=== PATIENT | male | born 1955 | race American Indian/Alaskan Native ===

== ENCOUNTER 2017-03-21 06:19 | Emergency (ER) | payer BC ==
[2017-03-21 06:30] VITALS: BMI 32.1
--- NOTE | 2017-03-21 07:34 | ED PDOC ---
Arrival/HPI <Belkis John Y - Last Filed: 03/21/17 12:18> - General Historian: Patient - History of Present Illness Time/Duration: Prior to Arrival Symptom Onset: Sudden Symptom Course: Improving Quality: Other (SOB) Severity Level: 1 Activities at Onset: Light Context: Work <Carol Martinez - Last Filed: 03/21/17 14:11> - General Chief Complaint: Shortness Of Breath Time Seen by Provider: 03/21/17 07:18 - History of Present Illness Narrative History of Present Illness (Text): 03/21/17 07:31 This is a 61Y M with PMH HTN, vertigo, cerebellar infarct and thrombocytopenia here for diaphoresis a few hours ago. 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 This has not happened to him before. His coworker was with him at the time and called an ambulance. His coworker did not see any LOC or tonic clonic movements. He denies CP, dizziness, n/v/d, numbness/tingling, vision changes, fever or chills. When in the ambulance he said his SBP was 230. He only took an Amlodipine this morning and usually takes a Lisinopril in the afternoon. (Carol Martinez) Past Medical History - Provider Review Nursing Documentation Reviewed: Yes - Cardiac Hx Hypertension: Yes - Pulmonary Hx Respiratory Disorders: No - Neurological Hx Neurological Disorder: No - HEENT Hx HEENT Disorder: No - Renal Hx Renal Disorder: No - Endocrine/Metabolic Hx Endocrine Disorders: No - Hematological/Oncological Hx Blood Disorders: No - Integumentary Hx Dermatological Disorder: No - Musculoskeletal/Rheumatological Hx Musculoskeletal Disorders: No - Gastrointestinal Hx Gastrointestinal Disorders: No - Genitourinary/Gynecological Hx Genitourinary Disorders: No - Psychiatric Hx Psychophysiologic Disorder: No Hx Substance Use: No <Carol Martinez - Last Filed: 03/21/17 14:11> Family/Social History - Physician Review Nursing Documentation Reviewed: Yes Family/Social History: Hypertension Smoking Status: Former Smoker Hx Alcohol Use: No Hx Substance Use: No <Carol Martinez - Last Filed: 03/21/17 14:11> Allergies/Home Meds <Belkis John Y - Last Filed: 03/21/17 12:18> <Carol Martinez - Last Filed: 03/21/17 14:11> Allergies/Adverse Reactions: Allergies No Known Allergies Allergy (Verified 03/21/17 06:29) Home Medications: Home Meds Medication Instructions Recorded Confirmed Lisinopril [Zestril] 10 mg PO DAILY 03/21/17 03/21/17 amLODIPine [Norvasc] 10 mg PO DAILY 03/21/17 03/21/17 Review of Systems - Physician Review All systems were reviewed & negative as marked: Yes - Review of Systems Constitutional: Normal. absent: Fatigue, Fevers Eyes: Normal. absent: Vision Changes ENT: Normal. absent: Hearing Changes Respiratory: SOB. absent: Cough, Sputum Cardiovascular: Normal. absent: Chest Pain, Palpitations, Edema Gastrointestinal: Normal. absent: Abdominal Pain, Diarrhea, Nausea Genitourinary Male: Normal. absent: Dysuria, Frequency Musculoskeletal: Normal. absent: Arthralgias Skin: Normal. absent: Rash Neurological: Normal. absent: Headache, Dizziness Endocrine: Diaphoresis Psychiatric: Normal. absent: Anxiety, Depression <Carol Martinez - Last Filed: 03/21/17 14:11> Physical Exam <Belkis John Y - Last Filed: 03/21/17 12:18> Vital Signs Reviewed: Yes Temperature: Afebrile Blood Pressure: Hypertensive Pulse: Regular Respiratory Rate: Normal Appearance: Positive for: Well-Appearing, Non-Toxic, Comfortable Pain Distress: None Mental Status: Positive for: Alert and Oriented X 3 - Systems Exam Head: Present: Atraumatic, Normocephalic Pupils: Present: PERRL Extroacular Muscles: Present: EOMI Conjunctiva: Present: Normal Mouth: Present: Moist Mucous Membranes Neck: Present: Normal Range of Motion Respiratory/Chest: Present: Clear to Auscultation, Good Air Exchange. No: Respiratory Distress, Accessory Muscle Use Cardiovascular: Present: Regular Rate and Rhythm, Normal S1, S2. No: Murmurs Abdomen: Present: Normal Bowel Sounds. No: Tenderness, Distention, Peritoneal Signs Back: Present: Normal Inspection Upper Extremity: Present: Normal Inspection. No: Cyanosis, Edema Lower Extremity: Present: Normal Inspection. No: Edema Neurological: Present: GCS=15, CN II-XII Intact, Speech Normal Skin: Present: Warm, Dry, Normal Color. No: Rashes Psychiatric: Present: Alert, Oriented x 3, Normal Insight, Normal Concentration <Carol Martinez - Last Filed: 03/21/17 14:11> Vital Signs Temp Pulse Resp BP Pulse Ox 03/21/17 07:30 70 16 146/86 99 03/21/17 06:48 18 03/21/17 06:30 97.7 F 76 18 149/92 H 96 Medical Decision Making <Belkis John - Last Filed: 03/21/17 12:18> Re-evaluation Time: 09:21 Reassessment Condition: Improved - Lab Interpretations I have reviewed the lab results: Yes Interpretation: Abnormal lab values (mild CK elevation) - RAD Interpretation Motor Vehicle Salesperson: ED Physician - EKG Interpretation Interpreted by ED Physician: Yes Type: 12 lead EKG Comparison: No previous EKG avail. <Carol Martinez - Last Filed: 03/21/17 14:11> ED Course and Treatment: Patient Seen With Resident: In agreement with resident note which contains more details about the patient. Patient was seen and evaluated with resident. Came up with plan and treatment together. Patient presented with episode of shortness of breath and high blood pressure resolved. Patient is asymptomatic at this time. Waiting on lab. Negative labs CPK slightly elevated ordered IV fluid and repeat CPK. Patient requesting HIV testing. (Belkis John) 03/21/17 07:39 Impression: This is a 61Y M with PMH HTN, vertigo, cerebellar infarct here for diaphoresis a few hours ago. Differential Diagnosis included but are not limited to: hypertensive urgency vs. r/o NV vs. panic attack Plan: -- CBC, CMP, Cardiac ISO -- EKG -- CXR -- Reassess and disposition 03/21/17 09:10 Progress Note: Patient is asymptomatic at this time. CK Noted to be elevated. EKG, CXR within normal limits. Will fluid 1L NS@200 and recheck CK. Patient has history of thrombocytopenia and noted to have it at this time. He is aware of his low platelets. Patient was repeat refusing lab work. Spoke with patient and now agrees, but requests HIV test. 03/21/17 12:59 Repeat CK was 340 and Troponin was negative x 2. Patient instructed to stay hydrated and follow up with PMD. Will call with HIV results. 03/21/17 14:11 Patient had headache during down time. Tylenol 650mg given. Pt feels better. (Carol Martinez) - Lab Interpretations Lab Results: 03/21/17 08:00 03/21/17 08:00 Lab Results 03/21/17 10:01: Total Creatine Kinase 340 H, CK-MB (CK-2) 1.1, CK-MB (CK-2) % Cancelled, Troponin I < 0.01 03/21/17 08:00: Sodium 141, Potassium 4.3, Chloride 103, Carbon Dioxide 30, Anion Gap 12, BUN 13, Creatinine 1.1, Est GFR ( Amer) > 60, Est GFR (Non- Af Amer) > 60, Random Glucose 93, Calcium 10.1, Total Bilirubin 0.8, AST 44, ALT 34, Alkaline Phosphatase 78, Lactate Dehydrogenase 674, Total Creatine Kinase 394 H, CK-MB (CK-2) 1.4, CK-MB (CK-2) % Cancelled, Troponin I < 0.01, Total Protein 9.1 H, Albumin 4.6, Globulin 4.5, Albumin/Globulin Ratio 1.0 L 03/21/17 08:00: WBC 6.2, RBC 5.59, Hgb 15.8, Hct 45.6, MCV 81.6, MCH 28.3, MCHC 34.6, RDW 13.8, Plt Count 44 L*, MPV 12.5 H - RAD Interpretation Narrative RAD Interpretations (Text): 03/21/17 08:34 CXR showed no active disease. (Carol Martinez) Radiology Orders: 03/21/17 07:29 CXR [CHEST PORTABLE] [RAD] Stat - EKG Interpretation EKG Interpretation (Text): 03/21/17 07:57 Hr 73. Normal intervals. Normal Sinus Rhythm (Carol Martinez) - Medication Orders Current Medication Orders: Discontinued Medications Acetaminophen (Tylenol 325mg Tab) Confirm Administered Dose 650 mg .ROUTE .STK- MED ONE Stop: 03/21/17 13:15 Sodium Chloride (Sodium Chloride 0.9%) 1,000 mls @ 200 mls/hr IV .Q5H STA Stop: 03/21/17 14:07 Last Admin: 03/21/17 09:30 Dose: 200 mls/hr - Scribe Statement The provider has reviewed the documentation as recorded by the Scribe <Belkis John - Last Filed: 03/21/17 12:18> <Carol Martinez - Last Filed: 03/21/17 14:11> - Scribe Statement Gabino Escudero Provider Scribe Attestation: All medical record entries made by the Scribe were at my direction and personally dictated by me. I have reviewed the chart and agree that the record accurately reflects my personal performance of the history, physical exam, medical decision making, and the department course for this patient. I have also personally directed, reviewed, and agree with the discharge instructions and disposition. (Belkis John) Disposition/Present on Arrival <Belkis John - Last Filed: 03/21/17 12:18> - Present on Arrival Any Indicators Present on Arrival: No History of DVT/PE: No History of Uncontrolled Diabetes: No Urinary Catheter: No History of Decub. Ulcer: No History Surgical Site Infection Following: None - Disposition Have Diagnosis and Disposition been Completed?: Yes Disposition Time: 12:32 Patient Plan: Discharge <Carol Martinez - Last Filed: 03/21/17 14:11> - Disposition Diagnosis: Hypertension, SOB (shortness of breath) Patient Problems: Current Active Problems Problem Status Onset Hypertension Acute SOB (shortness of breath) Acute Condition: GOOD Discharge Instructions (ExitCare): Hypertension (DC) Print Language: IRISH Additional Instructions: Manuel, thank you for letting us take care of you today. Your provider was Dr. Martinez. You were treated for diaphoresis and shortness of breath. The emergency medical care you received today was directed at your acute symptoms. If you were prescribed any medication, please fill it and take as directed. It may take several days for your symptoms to resolve. Return to the Emergency Department if your symptoms worsen, do not improve, or if you have any other problems. Please contact your doctor or call one of the physicians/clinics you have been referred to that are listed on the Patient Visit Information form that is included in your discharge packet. Bring any paperwork you were given at discharge with you along with any medications you are taking to your follow up visit. Our treatment cannot replace ongoing medical care by a primary care provider (PCP) outside of the emergency department. Thank you for allowing the [facility] team to be part of your care today. If you had an X-Ray or CT scan: A Radiologist will review the ED reading if any change in treatment is needed we will contact you. If you had an STI test: It will take 48 hours for the results. Please call after 1 week if you have not heard back. [facility], [Primary Care Provider] - Follow up with primary
[2017-03-21 08:17] LABS: HEMATOCRIT 45.6 % (42.0-52.0); MEAN CELL VOLUME 81.6 fL (80.0-105.0); MEAN CORPUSCULAR HEMOGLOBIN 28.3 pg (25.0-35.0); MEAN CORPUSCULAR HGB CONC 34.6 g/dl (31.0-37.0); MEAN PLATELET VOLUME 12.5 fl (7.0-11.0); RED CELL DISTRIBUTION WIDTH 13.8 % (11.5-14.5); WHITE BLOOD COUNT 6.2 10^3/ul (4.5-11.0)
[2017-03-21 08:30] LABS: ALKALINE PHOSPHATASE 78 U/L (38-133); ALT/SGPT 34 U/L (7-56); AST/SGOT 44 U/L (15-59); BILIRUBIN,TOTAL 0.8 mg/dL (0.2-1.3); BLOOD UREA NITROGEN 13 mg/dL (7-21); CALCIUM 10.1 mg/dL (8.4-10.5); CARBON DIOXIDE 30 mmol/L (21-33); CHLORIDE 103 mmol/L (98-107); GFR AFRICAN-AMERICAN > 60; GLUCOSE,RANDOM 93 mg/dL (70-110); POTASSIUM 4.3 mmol/L (3.6-5.0); SODIUM 141 mmol/L (132-148); TOTAL PROTEIN 9.1 g/dL (5.8-8.3)
[2017-03-21 08:47] LABS: TROPONIN I < 0.01 ng/mL
[2017-03-21] MEDS ORDERED: Sodium Chloride 0.9% 1,000 ML IV STA (09:08)
--- NOTE | 2017-03-21 10:54 | RAD ---
HISTORY: HTN COMPARISON: No prior. FINDINGS: LUNGS: No active pulmonary disease. PLEURA: No significant pleural effusion identified, no pneumothorax apparent. CARDIOVASCULAR: Normal. OSSEOUS STRUCTURES: No significant abnormalities. VISUALIZED UPPER ABDOMEN: Normal. OTHER FINDINGS: None. IMPRESSION: No active disease.
--- NOTE | 2017-03-21 11:03 | CARD ---
APPROVED REPORT EKG Measurement Heart [id number] <Conclusion> Normal sinus rhythm Normal ECG
[2017-03-21 12:34] LABS: TROPONIN I < 0.01 ng/mL
[2017-03-21 15:03] VITALS: RESP 18
[2017-03-21 15:12] VITALS: BP 139/78; PULSE 68; TEMP 98.6; O2SAT 100
== END 2017-03-21 13:50 | disposition home or self-care (01) ==
LOC: ED 06:19
DX: I10 Essential (primary) hypertension (principal); R06.02 Shortness of breath; D69.6 Thrombocytopenia, unspecified; Z87.891 Personal history of nicotine dependence
CPT/HCPCS: 71010; 80053; 82550; 82553; 83615; 84484; 85027; 86703; 93005; 96360; 96361; 99285; J7040

== ENCOUNTER 2017-04-02 09:54 | Observation (INO) | payer BC ==
[2017-04-02 09:54] VITALS: BMI 32.1
--- NOTE | 2017-04-02 10:23 | ED PDOC ---
Arrival/HPI <Alfonso Jean - Last Filed: 04/02/17 14:09> - General Historian: Patient - History of Present Illness Time/Duration: 4-6 hours Symptom Onset: Sudden Symptom Course: Unchanged Context: Home <Tasha Rios - Last Filed: 04/02/17 18:10> - General Chief Complaint: Shortness Of Breath Time Seen by Provider: 04/02/17 10:05 - History of Present Illness Narrative History of Present Illness (Text): 04/02/17 10:19 61 male with PMH of HTN, thrombocytopenia and cerebellar infarct present to ED with SOB and dizziness. Patient states that the symptoms began around 6 am. He took his morning BP medication however the symptoms persisted. He also states that he felt chest tightness for about 30 minutes that resolved spontaneously. He states that he had similar symptoms about 2 weeks before, he was found to have elevated blood pressure. He denies any diaphoresis, cough or wheezing. (Tasha Rios) Past Medical History - Provider Review Nursing Documentation Reviewed: Yes - Infectious Disease Hx of Infectious Diseases: None - Cardiac Hx Hypertension: Yes - Pulmonary Hx Respiratory Disorders: No - Neurological Hx Neurological Disorder: No - HEENT Hx HEENT Disorder: No - Renal Hx Renal Disorder: No - Endocrine/Metabolic Hx Endocrine Disorders: No - Hematological/Oncological Hx Blood Disorders: No - Integumentary Hx Dermatological Disorder: No - Musculoskeletal/Rheumatological Hx Musculoskeletal Disorders: No - Gastrointestinal Hx Gastrointestinal Disorders: No - Genitourinary/Gynecological Hx Genitourinary Disorders: No - Psychiatric Hx Psychophysiologic Disorder: No Hx Anxiety: Yes Hx Substance Use: No <Tasha Rios - Last Filed: 04/02/17 18:10> Family/Social History - Physician Review Nursing Documentation Reviewed: Yes Family/Social History: Unknown Family HX Smoking Status: Former Smoker Hx Alcohol Use: No Hx Substance Use: No <Tasha Rios - Last Filed: 04/02/17 18:10> Allergies/Home Meds <Alfonso Jean - Last Filed: 04/02/17 14:09> <Tasha Rios - Last Filed: 04/02/17 18:10> Allergies/Adverse Reactions: Allergies No Known Allergies Allergy (Verified 03/21/17 06:29) Home Medications: Home Meds Medication Instructions Recorded Confirmed Lisinopril [Zestril] 10 mg PO DAILY 03/21/17 04/02/17 amLODIPine [Norvasc] 10 mg PO DAILY 03/21/17 04/02/17 Review of Systems - Review of Systems Constitutional: Normal. absent: Weight Change, Fevers Eyes: Normal. absent: Vision Changes, Eye Pain ENT: Normal Respiratory: Normal, SOB. absent: Cough, Sputum, Wheezing Cardiovascular: Normal. absent: Palpitations, Edema, Calf Pain, Syncope Gastrointestinal: Normal. absent: Abdominal Pain, Constipation, Diarrhea, Nausea, Vomiting, Appetite Changes Genitourinary Male: Normal. absent: Dysuria, Frequency, Hematuria Musculoskeletal: Normal. absent: Arthralgias, Myalgias Skin: Normal. absent: Rash, Pruritis Neurological: Normal, Dizziness. absent: Headache, Speech Changes Endocrine: Normal. absent: Diaphoresis Hemo/Lymphatic: Normal. absent: Easy Bleeding, Easy Bruising Psychiatric: Normal <BlancaTasha gilmore - Last Filed: 04/02/17 18:10> Physical Exam - Systems Exam Head: Present: Atraumatic, Normocephalic Pupils: Present: PERRL. No: Sluggish Extroacular Muscles: Present: EOMI. No: Gaze Palsy Conjunctiva: Present: Normal. No: Injected, Icteric Mouth: Present: Moist Mucous Membranes. No: Dry Nose (External): Present: Atraumatic Neck: Present: Normal Range of Motion Respiratory/Chest: Present: Clear to Auscultation. No: Good Air Exchange, Respiratory Distress, Accessory Muscle Use, Wheezes, Rales, Rhonchi, Tachypneic Cardiovascular: Present: Regular Rate and Rhythm, Normal S1, S2. No: Murmurs, Tachycardic Abdomen: Present: Tenderness, Normal Bowel Sounds. No: Distention, Peritoneal Signs Upper Extremity: Present: Normal Inspection. No: Cyanosis, Edema, Tenderness, Swelling Lower Extremity: Present: Normal Inspection. No: Edema, CALF TENDERNESS Neurological: Present: GCS=15, CN II-XII Intact, Speech Normal Skin: Present: Warm, Dry, Normal Color. No: Rashes Psychiatric: Present: Alert, Oriented x 3 <BlancaTasha gilmore - Last Filed: 04/02/17 18:10> Vital Signs Temp Pulse Resp BP Pulse Ox 04/02/17 14:29 98.2 F 78 18 148/93 H 97 04/02/17 11:51 98.0 F 71 18 115/80 100 04/02/17 10:37 18 04/02/17 10:01 98.1 F 69 20 148/78 98 Medical Decision Making <StevenmelizahenriettaAlfonso - Last Filed: 04/02/17 14:09> - EKG Interpretation Interpreted by ED Physician: Yes Type: 12 lead EKG <Tasha Rios - Last Filed: 04/02/17 18:10> ED Course and Treatment: Patient Seen With Resident: In agreement with resident note which contains more details about the patient. Patient was seen and evaluated with resident. Came up with plan and treatment together. Patient's with a history of hypertension, thrombocytopenia, and cerebellar infarct complaining of shortness of breath, dizziness, and chest tightness. Patient states that this episode has resolved and he currently is asymptomatic. On examination patient has no focal neurological deficits, hints exam negative, no suspicion for cerebellar / posterior fossa infarct pt's HEART score low. 2 sets of cardiac enzymes and an EKG ordered I had a long discussion with patient that our initial evaluation has not shown evidence of a heart attack. Patient verbalized understanding that even if these tests are normal, symptoms may still be a warning sign of a future heart attack and it is very important for patient to arrange outpatient cardiology follow up Patient was agreeable to observation in the emergency room, and understood that this will prolong the length of stay Observation and further evaluation was offered as inpatient, but patient asked to be discharged home with outpatient follow up instead. 04/02/17 14:10 Patient's second troponin negative. Denies any complaints at this time, again expresses wishes to be discharged home. Patient's repeat EKG shows no evolving changes. Had a long and extensive d/w patient about f/u with a conduit mechanic for further workup and testing as well as a primary physician. Explained to patient that although his ER w/u did not show any acute abnormalities, patient still needs further testing which may include an echo, stress test, cardiac cath, or others. Pt states he understands to return to the ER right away for new or worsening symptoms or for inability to f/u with PMD or specialist as instructed. Patient states that he fully agrees with and understands discharge instructions. States that he agrees with the plan and disposition. Verbalized and repeated discharge instructions and plan. I have given the patient opportunity to ask any additional questions. (Alfonso Jean) 04/02/17 10:27 Impression: 61 yo male with PMH of HTN, thrombocytopenia and cerebellar infarct presented with SOB, dizziness and resolved chest tightness. Differential Diagnosis included but are not limited to: HTN, MS, anxiety Plan: - CBC - CMP - EKG - CXR - trops -- Reassess and disposition Progress Notes: - EKG showed NSR without ST changes. 04/02/17 10:51 -cxr showed no active disease. 04/02/17 11:07 - Patient is currently asymptotic, denies sob, dizziness. Will order d-dimer to r/o PE. CBC showed thrombocytopenia, patient is aware, has history of thrombocytopenia. trops with negative x1. Repeat trops in 3 hours. 04/02/17 14:03 - d-dimer and 2nd set of trops were wnl. Patient is resting comfortably, dizziness and SOB has resolved. (Tasha Rios) - Lab Interpretations Lab Results: 04/02/17 10:36 04/02/17 10:36 Lab Results 04/02/17 10:36: Sodium 139, Potassium 4.1, Chloride 102, Carbon Dioxide 29, Anion Gap 12, BUN 16, Creatinine 1.2, Est GFR ( Amer) > 60, Est GFR (Non- Af Amer) > 60, Random Glucose 89, Calcium 9.5, Total Bilirubin 0.5, AST 24, ALT 32, Alkaline Phosphatase 62, Lactate Dehydrogenase 421, Total Creatine Kinase 322 H, CK-MB (CK-2) 1.2, CK-MB (CK-2) % Cancelled, Troponin I < 0.01, Total Protein 7.9, Albumin 4.1, Globulin 3.8, Albumin/Globulin Ratio 1.1 04/02/17 10:36: WBC 5.7, RBC 5.22, Hgb 14.4, Hct 44.0, MCV 84.3, MCH 27.6, MCHC 32.7, RDW 13.9, Plt Count 29 L*, MPV 12.0 H, Gran % 59.9, Lymph % (Auto) 31.5, [place] % (Auto) 7.4 H, Eos % (Auto) 0.7 L, Baso % (Auto) 0.5, Gran # 0.20 L, Lymph # 3.5 H, [place] # 1.9 H, Eos # 0.4, Baso # 0.04, Platelet Evaluation Low - RAD Interpretation Radiology Orders: 04/02/17 10:17 X-RAY [CHEST PORTABLE] [RAD] Stat - EKG Interpretation EKG Interpretation (Text): 04/02/17 10:27 rate 72, NSR, no ST changes. (Tasha Rios) ED OBSERVATION Discharge: Yes Date of observation admission: 04/02/17 Time of observation admission: 10:00 <Alfonso Jean - Last Filed: 04/02/17 14:09> <Tasha Rios - Last Filed: 04/02/17 18:10> - Observation admission statement Patient is being placed in observation because:: chest pain (Alfonso Jean) - Goals of Observation Goals of observation are:: repeat troponins (Alfonso Jean) - Scribe Statement The provider has reviewed the documentation as recorded by the Scribe <Alfonso Jean - Last Filed: 04/02/17 14:09> <Tasha Rios - Last Filed: 04/02/17 18:10> - Scribe Statement Gabino Escudero Provider Scribe Attestation: All medical record entries made by the Scribe were at my direction and personally dictated by me. I have reviewed the chart and agree that the record accurately reflects my personal performance of the history, physical exam, medical decision making, and the department course for this patient. I have also personally directed, reviewed, and agree with the discharge instructions and disposition. (Alfonso Jean) Disposition/Present on Arrival <Alfonso Jean - Last Filed: 04/02/17 14:09> - Present on Arrival Any Indicators Present on Arrival: No History of DVT/PE: No History of Uncontrolled Diabetes: No Urinary Catheter: No History of Decub. Ulcer: No History Surgical Site Infection Following: None - Disposition Have Diagnosis and Disposition been Completed?: Yes Disposition Time: 10:00 Patient Plan: Discharge <Tasha Rios - Last Filed: 04/02/17 18:10> - Disposition Diagnosis: Chest pain Disposition: HOME/ ROUTINE Condition: GOOD
[2017-04-02 10:39] VITALS: RESP 18
[2017-04-02 10:49] LABS: ALB/GLOB RATIO 1.1 (1.1-1.8); ALKALINE PHOSPHATASE 62 U/L (38-133); ALT/SGPT 32 U/L (7-56); AST/SGOT 24 U/L (15-59); BILIRUBIN,TOTAL 0.5 mg/dL (0.2-1.3); BLOOD UREA NITROGEN 16 mg/dL (7-21); CALCIUM 9.5 mg/dL (8.4-10.5); CARBON DIOXIDE 29 mmol/L (21-33); CHLORIDE 102 mmol/L (98-107); GFR AFRICAN-AMERICAN > 60; GLUCOSE,RANDOM 89 mg/dL (70-110); POTASSIUM 4.1 mmol/L (3.6-5.0); SODIUM 139 mmol/L (132-148); TOTAL PROTEIN 7.9 g/dL (5.8-8.3)
--- NOTE | 2017-04-02 10:59 | RAD ---
HISTORY: Shortness of breath COMPARISON: 03/21/2017. FINDINGS: LUNGS: The lungs are well inflated and clear. PLEURA: No significant pleural effusion identified, no pneumothorax apparent. CARDIOVASCULAR: Normal. OSSEOUS STRUCTURES: No significant abnormalities. VISUALIZED UPPER ABDOMEN: Normal. OTHER FINDINGS: None. IMPRESSION: No active pulmonary disease.
[2017-04-02 11:00] LABS: MEAN CELL VOLUME 84.3 fL (80.0-105.0); MEAN CORPUSCULAR HEMOGLOBIN 27.6 pg (25.0-35.0); MEAN CORPUSCULAR HGB CONC 32.7 g/dl (31.0-37.0); RED CELL DISTRIBUTION WIDTH 13.9 % (11.5-14.5); WHITE BLOOD COUNT 5.7 10^3/ul (4.5-11.0)
[2017-04-02 11:01] LABS: TROPONIN I < 0.01 ng/mL
[2017-04-02 11:02] LABS: PLATELET COUNT 29 10^3/uL (120.0-450.0)
[2017-04-02 11:09] LABS: ADD MANUAL DIFF? NO; BASO # 0.04 K/mm3 (0.0-2.0); BASO % 0.5 % (0.0-3.0); EOS # 0.4 (0.0-0.7); EOS % 0.7 % (1.5-5.0); GRAN % 59.9 % (50.0-68.0); LYMPH # 3.5 (1.2-3.4); LYMPH % 31.5 % (22.0-35.0); MONO # 1.9 (0.1-0.6); MONO % 7.4 % (1.0-6.0)
[2017-04-02 11:44] LABS: PLATELET ESTIMATE LOW (NORMAL)
[2017-04-02 13:52] LABS: TROPONIN I < 0.01 ng/mL
[2017-04-02 14:30] VITALS: BP 148/93; PULSE 78; TEMP 98.2; O2SAT 97
--- NOTE | 2017-04-04 10:01 | CARD ---
APPROVED REPORT EKG Measurement Heart [id number] <Conclusion> Normal sinus rhythm Leftward axis
--- NOTE | 2017-04-04 11:06 | CARD ---
APPROVED REPORT EKG Measurement Heart [id number] <Conclusion> Normal sinus rhythm Mild NSSTW changes
== END 2017-04-02 14:08 | disposition home or self-care (01) ==
LOC: ED 09:54 → EROBSV 11:05
PROVIDERS: ADMIT Emergency Medicine; ATTEND Emergency Medicine
DX: R07.9 Chest pain, unspecified (principal); I10 Essential (primary) hypertension; D69.6 Thrombocytopenia, unspecified; Z87.891 Personal history of nicotine dependence
CPT/HCPCS: 71010; 80053; 82550; 82553; 83615; 84484; 85025; 85378; 93005; 99284; G0378

== ENCOUNTER 2017-04-04 10:21 | Emergency (ER) | payer BC ==
[2017-04-04 11:00] VITALS: RESP 18; TEMP 98.4; O2SAT 98; BMI 31.5
[2017-04-04 11:20] VITALS: BP 138/76; PULSE 68
--- NOTE | 2017-04-04 11:26 | ED PDOC ---
Arrival/HPI - General Chief Complaint: Dizziness/Lightheaded Time Seen by Provider: 04/04/17 11:02 Historian: Patient - History of Present Illness Narrative History of Present Illness (Text): 04/04/17 11:28 A 61 year old male presents to the emergency department for follow up. Patient reported to the emergency department two days ago and states discharge papers stated to follow up in the emergency department if cannot follow up with PMD. Patient reports feeling better. Patient denies any fever or any other complaints at this time. Symptom Course: Resolved Activities at Onset: Rest Context: Home Associated Symptoms (Text): none Past Medical History - Provider Review Nursing Documentation Reviewed: Yes - Infectious Disease Hx of Infectious Diseases: None - Cardiac Hx Cardiac Disorders: Yes Hx Hypertension: Yes - Pulmonary Hx Respiratory Disorders: No - Neurological Hx Neurological Disorder: No - HEENT Hx HEENT Disorder: No - Renal Hx Renal Disorder: No - Endocrine/Metabolic Hx Endocrine Disorders: No - Hematological/Oncological Hx Blood Disorders: Yes Other/Comment: low cell count - Integumentary Hx Dermatological Disorder: No - Musculoskeletal/Rheumatological Hx Musculoskeletal Disorders: No - Gastrointestinal Hx Gastrointestinal Disorders: No - Genitourinary/Gynecological Hx Genitourinary Disorders: No - Psychiatric Hx Psychophysiologic Disorder: No Hx Anxiety: Yes Hx Substance Use: No Family/Social History - Physician Review Nursing Documentation Reviewed: Yes Family/Social History: No Known Family HX Smoking Status: Former Smoker Hx Alcohol Use: Yes Frequency of alcohol use: Socially Hx Substance Use: No Allergies/Home Meds Allergies/Adverse Reactions: Allergies No Known Allergies Allergy (Verified 04/04/17 10:59) Home Medications: Home Meds Medication Instructions Recorded Confirmed Lisinopril [Zestril] 10 mg PO DAILY 03/21/17 04/04/17 amLODIPine [Norvasc] 10 mg PO DAILY 03/21/17 04/04/17 Review of Systems - Physician Review All systems were reviewed & negative as marked: Yes - Review of Systems Constitutional: absent: Fevers Respiratory: absent: SOB Neurological: absent: Dizziness Physical Exam Vital Signs Reviewed: Yes Vital Signs Temp Pulse Resp BP Pulse Ox 04/04/17 11:19 68 18 138/76 98 04/04/17 10:52 98.4 F 74 18 98 Temperature: Afebrile Pulse: Regular Respiratory Rate: Normal Appearance: Positive for: Well-Appearing, Non-Toxic, Comfortable Pain Distress: None Mental Status: Positive for: Alert and Oriented X 3 - Systems Exam Head: Present: Atraumatic, Normocephalic Pupils: Present: PERRL Extroacular Muscles: Present: EOMI Conjunctiva: Present: Normal Mouth: Present: Moist Mucous Membranes Neck: Present: Normal Range of Motion Respiratory/Chest: Present: Clear to Auscultation, Good Air Exchange. No: Respiratory Distress, Accessory Muscle Use Cardiovascular: Present: Regular Rate and Rhythm, Normal S1, S2. No: Murmurs Abdomen: Present: Normal Bowel Sounds. No: Tenderness, Distention, Peritoneal Signs Back: Present: Normal Inspection Upper Extremity: Present: Normal Inspection. No: Cyanosis, Edema Lower Extremity: Present: Normal Inspection. No: Edema Neurological: Present: GCS=15, CN II-XII Intact, Speech Normal Skin: Present: Warm, Dry, Normal Color. No: Rashes Psychiatric: Present: Alert, Oriented x 3, Normal Insight, Normal Concentration Medical Decision Making ED Course and Treatment: 04/04/17 11:22 Impression: A 61 year old male presents to the emergency department for follow up. Plan: -- Reassess and disposition Prior Visits: Notes and results from previous visits were reviewed. Patient last reported to the emergency department on 04/02/27 for evaluation of shortness of breath and dizziness. Progress Notes: Patient reports he was discharged from emergency department and discharged papers stated to return if cannot follow up with a PMD within two days. Patient states he feels better and wanted to get checked out. Patient is currently listening to iPod, in no distress. Patient refuses any blood or lab work to be done. EKG: Ordered, reviewed, and independently interpreted the EKG. Rate : 70 BPM Rhythm : NSR Interpretation : No ST/T changes Comparison : No previous EKG for comparison. On re-evaluation, the patient feels better and is in no acute distress. I have discussed the results and plan with the patient, who expresses understanding. Patient in agreement with plan to discharged home. Patient is stable for discharge. Patient was instructed to follow up with physician/clinic in 1-2 days or return if symptoms worsen or new concerning symptoms arise. - Scribe Statement The provider has reviewed the documentation as recorded by the Woodrow Escudero Provider Scribe Attestation: All medical record entries made by the Scribe were at my direction and personally dictated by me. I have reviewed the chart and agree that the record accurately reflects my personal performance of the history, physical exam, medical decision making, and the department course for this patient. I have also personally directed, reviewed, and agree with the discharge instructions and disposition. Disposition/Present on Arrival - Present on Arrival Any Indicators Present on Arrival: No History of DVT/PE: No History of Uncontrolled Diabetes: No Urinary Catheter: No History of Decub. Ulcer: No History Surgical Site Infection Following: None - Disposition Have Diagnosis and Disposition been Completed?: Yes Diagnosis: Follow up Disposition: HOME/ ROUTINE Disposition Time: 11:30 Condition: STABLE Discharge Instructions (ExitCare): Chest Pain (ED) Additional Instructions: please follow up with your doctor/clinic. return to emergency room with any worsening symptoms or concerns. Referrals: [facility] [Outside] - Follow up with primary [facility] [Outside] - Follow up with primary [facility] [Outside] - Follow up with primary
--- NOTE | 2017-04-04 18:26 | CARD ---
APPROVED REPORT EKG Measurement Heart [id number] <Conclusion> Normal sinus rhythm Normal ECG
== END 2017-04-04 11:35 | disposition home or self-care (01) ==
LOC: ED 10:21
DX: Z09 Encounter for follow-up examination after completed treatment for conditions other than malignant neoplasm (principal)

== ENCOUNTER 2017-04-09 10:41 | Emergency (ER) | payer BC ==
[2017-04-09 10:41] VITALS: BMI 31.5
[2017-04-09 10:46] VITALS: TEMP 98; O2SAT 99
--- NOTE | 2017-04-09 11:02 | ED PDOC ---
Arrival/HPI - History of Present Illness Time/Duration: Prior to Arrival Symptom Onset: Sudden Symptom Course: Improving Context: Home <Tasha Rios - Last Filed: 04/09/17 13:24> <Alfonso Jean - Last Filed: 04/09/17 14:57> - General Chief Complaint: Dizziness/Lightheaded Time Seen by Provider: 04/09/17 10:48 - History of Present Illness Narrative History of Present Illness (Text): 04/09/17 10:58 61 male with PMH of HTN, thrombocytopenia and cerebellar infarct present to ED with dizziness and shaking. Patient states that this morning on his way to work he began to feel shaking with cramping abdominal discomfort and tachycardia. He rested in his car for 15 minutes and the symptoms improved. This morning after taking his BP medication he experienced dizziness which resolved after a few minutes. At time of presentation symptoms resolved. He states that he had multiple previous episodes with similar symptoms. He denies any fever, diaphoresis, cough or wheezing. Patient has appointment with PMD this afternoon. (Tasha Rios) Past Medical History - Provider Review Nursing Documentation Reviewed: Yes - Infectious Disease Hx of Infectious Diseases: None - Cardiac Hx Cardiac Disorders: Yes Hx Hypertension: Yes - Pulmonary Hx Respiratory Disorders: No - Neurological Hx Neurological Disorder: Yes Hx Dizziness: Yes - HEENT Hx HEENT Disorder: No - Renal Hx Renal Disorder: No - Endocrine/Metabolic Hx Endocrine Disorders: No - Hematological/Oncological Hx Blood Disorders: Yes Other/Comment: low cell count - Integumentary Hx Dermatological Disorder: No - Musculoskeletal/Rheumatological Hx Musculoskeletal Disorders: No - Gastrointestinal Hx Gastrointestinal Disorders: No - Genitourinary/Gynecological Hx Genitourinary Disorders: No - Psychiatric Hx Psychophysiologic Disorder: No Hx Anxiety: Yes Hx Substance Use: No - Anesthesia Hx Anesthesia: No Hx Anesthesia Reactions: No <Tasha Rios - Last Filed: 04/09/17 13:24> Family/Social History - Physician Review Nursing Documentation Reviewed: Yes Smoking Status: Former Smoker Hx Alcohol Use: Yes Hx Substance Use: No <Tasha iRos - Last Filed: 04/09/17 13:24> Family/Social History: Unknown Family HX <Alfonso Jean - Last Filed: 04/09/17 14:57> Allergies/Home Meds <Tasha Rios - Last Filed: 04/09/17 13:24> <Alfonso Jean - Last Filed: 04/09/17 14:57> Allergies/Adverse Reactions: Allergies No Known Allergies Allergy (Verified 04/09/17 10:43) Home Medications: Home Meds Medication Instructions Recorded Confirmed Lisinopril [Zestril] 10 mg PO DAILY 03/21/17 04/09/17 amLODIPine [Norvasc] 10 mg PO DAILY 03/21/17 04/09/17 Review of Systems - Review of Systems Constitutional: Normal, Fatigue. absent: Fevers Eyes: Normal. absent: Vision Changes ENT: Normal. absent: Hearing Changes Respiratory: Normal, SOB. absent: Cough, Sputum, Wheezing Cardiovascular: Normal. absent: Chest Pain, Palpitations, Edema, Calf Pain, Syncope Gastrointestinal: Normal. absent: Abdominal Pain, Constipation, Diarrhea, Nausea, Vomiting Genitourinary Male: Normal. absent: Dysuria, Frequency, Hematuria Musculoskeletal: Normal. absent: Arthralgias, Back Pain, Myalgias Skin: Normal. absent: Rash, Pruritis, Laceration, Ulcer Neurological: Normal, Dizziness. absent: Headache, Focal Weakness, Speech Changes Endocrine: Normal. absent: Diaphoresis Hemo/Lymphatic: Normal. absent: Easy Bleeding, Easy Bruising Psychiatric: Normal <Tasha Rios - Last Filed: 04/09/17 13:24> Physical Exam - Systems Exam Head: Present: Atraumatic, Normocephalic Pupils: Present: PERRL. No: Sluggish, Non-Reactive Extroacular Muscles: Present: EOMI Conjunctiva: Present: Normal Mouth: Present: Moist Mucous Membranes, Normal Tounge. No: Dry Nose (External): Present: Atraumatic Neck: Present: Normal Range of Motion Respiratory/Chest: Present: Clear to Auscultation, Good Air Exchange. No: Respiratory Distress, Accessory Muscle Use, Wheezes, Rales, Rhonchi, Tachypneic Cardiovascular: Present: Regular Rate and Rhythm, Normal S1, S2. No: Murmurs, Tachycardic Abdomen: Present: Normal Bowel Sounds. No: Tenderness, Distention, Peritoneal Signs Upper Extremity: Present: Normal Inspection. No: Cyanosis, Edema Lower Extremity: Present: Normal Inspection. No: Edema, CALF TENDERNESS Neurological: Present: GCS=15, CN II-XII Intact, Speech Normal, Other (hint test negative) Skin: Present: Warm, Dry, Normal Color. No: Rashes Psychiatric: Present: Alert, Oriented x 3 <BlancaTasha gilmore - Last Filed: 04/09/17 13:24> Medical Decision Making <BlancaTasha - Last Filed: 04/09/17 13:24> <Alfonso Jean - Last Filed: 04/09/17 14:57> ED Course and Treatment: 04/09/17 11:16 Impression: 61 yo male with PMH of HTN, thrombocytopenia and cerebellar infarct present to ED with dizziness, abdominal cramps and shaking which have resolved. Differential Diagnosis included but are not limited to: HTN, arrhythmia, anxiety Plan: - EKG - CBC, BMP -- Reassess and disposition Progress Notes: 04/09/17 11:23 - No symptoms on presentation, patient is not tachycardia or SOB. Patient presented last week for similar symptoms, D- dimer was negative. EKG showed rate 71, NSR, no ST changes. 04/09/17 11:58 - patient is doing well. Lab work showed thrombocytopenia, patient is aware, has history of thrombocytopenia, follows up with PMD. 04/09/17 13:18 - Discussed with patient the importance of follow up with PMD and director validation, he is in agreement will follow up with PMD today. 04/09/17 13:26 (Tasha Rios) Patient Seen With Resident: In agreement with resident note which contains more details about the patient. Patient was seen and evaluated with resident. Came up with plan and treatment together. (Alfonso Jean) - Lab Interpretations Lab Results: 04/09/17 11:03 04/09/17 11:03 Lab Results 04/09/17 11:03: Sodium 139, Potassium 4.0, Chloride 103, Carbon Dioxide 26, Anion Gap 14, BUN 12, Creatinine 1.1, Est GFR ( Amer) > 60, Est GFR (Non- Af Amer) > 60, Random Glucose 113 H, Calcium 9.6 04/09/17 11:03: WBC 6.3, RBC 5.08, Hgb 14.3, Hct 42.5, MCV 83.7, MCH 28.1, MCHC 33.6, RDW 13.8, Plt Count 26 L*, Gran % 54.4, Lymph % (Auto) 35.7 H, Dauphin % ( Auto) 8.6 H, Eos % (Auto) 0.8 L, Baso % (Auto) 0.5, Gran # 3.40, Lymph # 2.2, Dauphin # 0.5, Eos # 0.1, Baso # 0.03, Platelet Evaluation Low - EKG Interpretation EKG Interpretation (Text): 04/09/17 11:23 EKG: Ordered, reviewed, and independently interpreted the EKG. Rate : 71 BPM Rhythm : NSR Interpretation : No ST-segment elevations or depressions (Tasha Rios) Disposition/Present on Arrival - Present on Arrival Any Indicators Present on Arrival: No History of DVT/PE: No History of Uncontrolled Diabetes: No Urinary Catheter: No History of Decub. Ulcer: No History Surgical Site Infection Following: None - Disposition Have Diagnosis and Disposition been Completed?: Yes Disposition Time: 13:05 Patient Plan: Discharge <Tasha Rios - Last Filed: 04/09/17 13:24> <Alfonso Jean - Last Filed: 04/09/17 14:57> - Disposition Diagnosis: Dizziness Disposition: HOME/ ROUTINE Condition: GOOD Additional Instructions: If new or worsting symptoms return to nearest emergency department. Follow up with PMD in 1-2 days. Referrals: Carol Lechuga, [Primary Care Provider] - Follow up with primary
[2017-04-09 11:29] VITALS: RESP 18
[2017-04-09 11:37] LABS: BASO # 0.03 K/mm3 (0.0-2.0); BASO % 0.5 % (0.0-3.0); EOS # 0.1 (0.0-0.7); EOS % 0.8 % (1.5-5.0); GRAN % 54.4 % (50.0-68.0); HEMATOCRIT 42.5 % (42.0-52.0); LYMPH # 2.2 (1.2-3.4); LYMPH % 35.7 % (22.0-35.0); MEAN CELL VOLUME 83.7 fL (80.0-105.0); MEAN CORPUSCULAR HEMOGLOBIN 28.1 pg (25.0-35.0); MEAN CORPUSCULAR HGB CONC 33.6 g/dl (31.0-37.0); MONO # 0.5 (0.1-0.6); MONO % 8.6 % (1.0-6.0); RED CELL DISTRIBUTION WIDTH 13.8 % (11.5-14.5); WHITE BLOOD COUNT 6.3 10^3/ul (4.5-11.0)
[2017-04-09 11:58] LABS: PLATELET COUNT 26 10^3/uL (120.0-450.0)
[2017-04-09 11:59] LABS: ADD MANUAL DIFF? NO
[2017-04-09 12:03] LABS: BLOOD UREA NITROGEN 12 mg/dL (7-21); CALCIUM 9.6 mg/dL (8.4-10.5); CARBON DIOXIDE 26 mmol/L (21-33); CHLORIDE 103 mmol/L (98-107); GFR AFRICAN-AMERICAN > 60; GLUCOSE,RANDOM 113 mg/dL (70-110); SODIUM 139 mmol/L (132-148)
[2017-04-09 12:25] LABS: PLATELET ESTIMATE LOW (NORMAL)
[2017-04-09 12:31] VITALS: BP 130/79; PULSE 79
--- NOTE | 2017-04-09 22:27 | CARD ---
APPROVED REPORT EKG Measurement Heart [id number] <Conclusion> Normal sinus rhythm Normal ECG
== END 2017-04-09 13:40 | disposition home or self-care (01) ==
LOC: ED 10:41
DX: R42 Dizziness and giddiness (principal); I10 Essential (primary) hypertension

== ENCOUNTER 2017-04-16 12:16 | Emergency (ER) | payer BC ==
[2017-04-16 12:16] VITALS: BMI 31.5
[2017-04-16 12:27] VITALS: TEMP 98.6; O2SAT 100
--- NOTE | 2017-04-16 12:44 | ED PDOC ---
Arrival/HPI - General Chief Complaint: Palpitations Time Seen by Provider: 04/16/17 12:28 Historian: Patient - History of Present Illness Narrative History of Present Illness (Text): 04/16/17 12:33 A 61 year old male, whose past medical history includes hypertension, presents to the emergency department compalining of chest palpitation. Patient states palpitations lasted for a few seconds while eating prior to arrival. He had no chest pain or dizziness or sob or diaphoresis associated with it. Patient reports he was referred to follow up with PMD but came here. He denies any fever , nausea, diarrhea, abdominal pain, dizziness, painful urination, or any other symptoms at this time. PMD: Non H provider Time/Duration: Prior to Arrival Symptom Onset: Other Symptom Course: Resolved Quality: Other Activities at Onset: Eating Modifying Factors (Text): none Context: Home Associated Symptoms (Text): none Past Medical History - Provider Review Nursing Documentation Reviewed: Yes - Infectious Disease Hx of Infectious Diseases: None - Cardiac Hx Cardiac Disorders: Yes Hx Hypertension: Yes - Pulmonary Hx Respiratory Disorders: No - Neurological Hx Neurological Disorder: Yes Hx Dizziness: Yes - HEENT Hx HEENT Disorder: No - Renal Hx Renal Disorder: No - Endocrine/Metabolic Hx Endocrine Disorders: No - Hematological/Oncological Hx Blood Disorders: Yes Other/Comment: low cell count - Integumentary Hx Dermatological Disorder: No - Musculoskeletal/Rheumatological Hx Musculoskeletal Disorders: No - Gastrointestinal Hx Gastrointestinal Disorders: No - Genitourinary/Gynecological Hx Genitourinary Disorders: No - Psychiatric Hx Psychophysiologic Disorder: No Hx Anxiety: Yes Hx Substance Use: No - Anesthesia Hx Anesthesia: No Hx Anesthesia Reactions: No Family/Social History - Physician Review Nursing Documentation Reviewed: Yes Family/Social History: Unknown Family HX Smoking Status: Former Smoker Hx Alcohol Use: Yes Hx Substance Use: No Allergies/Home Meds Allergies/Adverse Reactions: Allergies No Known Allergies Allergy (Verified 04/16/17 12:24) Home Medications: Home Meds Medication Instructions Recorded Confirmed Lisinopril [Zestril] 10 mg PO DAILY 03/21/17 04/16/17 amLODIPine [Norvasc] 10 mg PO DAILY 03/21/17 04/16/17 Review of Systems - Physician Review All systems were reviewed & negative as marked: Yes - Review of Systems Constitutional: absent: Fevers Respiratory: absent: SOB Cardiovascular: Palpitations. absent: Chest Pain Gastrointestinal: absent: Abdominal Pain, Diarrhea, Nausea, Vomiting Genitourinary Male: absent: Dysuria, Frequency, Hematuria Musculoskeletal: absent: Back Pain, Neck Pain Neurological: absent: Headache, Dizziness Physical Exam Vital Signs Reviewed: Yes Vital Signs Temp Pulse Resp BP Pulse Ox 04/16/17 12:26 98.6 F 79 19 120/77 100 Temperature: Afebrile Blood Pressure: Normal Pulse: Regular Respiratory Rate: Normal Appearance: Positive for: Well-Appearing, Non-Toxic, Comfortable Pain Distress: None Mental Status: Positive for: Alert and Oriented X 3 - Systems Exam Head: Present: Atraumatic, Normocephalic Pupils: Present: PERRL Conjunctiva: Present: Normal Mouth: Present: Moist Mucous Membranes Pharnyx: Present: Normal. No: ERYTHEMA Neck: Present: Normal Range of Motion Respiratory/Chest: Present: Clear to Auscultation, Good Air Exchange. No: Respiratory Distress, Accessory Muscle Use Cardiovascular: Present: Regular Rate and Rhythm, Normal S1, S2. No: Murmurs Abdomen: Present: Normal Bowel Sounds. No: Tenderness, Distention, Peritoneal Signs Back: Present: Normal Inspection Upper Extremity: Present: Normal Inspection. No: Cyanosis, Edema Lower Extremity: Present: Normal Inspection. No: Edema Neurological: Present: GCS=15, CN II-XII Intact, Speech Normal Skin: Present: Warm, Dry, Normal Color. No: Rashes Psychiatric: Present: Alert, Oriented x 3, Normal Insight, Normal Concentration Medical Decision Making ED Course and Treatment: 04/16/17 12:33 Impression: A 61 year old male with chest palpitations that lasted for a few seconds. Currently patient is asymptomatic and physical examination reveals no acute findings. Differential Diagnosis include but are not limited to: anxiety vs arrhythmia Plan: -- EKG -- Reassess and disposition Prior Visits: Notes and results from previous visits were reviewed. The patient last presented to the emergency department on 04/09/17 for evaluation of dizziness and shaking. Progress Notes: EKG: Ordered, reviewed, and independently interpreted the EKG. Rate : 78 BPM Rhythm : NSR Interpretation : Normal interval, normal axis, no ST/T changes. 04/16/17 12:50 The patient reports having palpitations for several seconds with no associated symptoms and says he actually came here because he was told to follow up here. He is asymptomatic with normal vitals and a normal EKG. He has had multiple visits to the ED for palpitations with unremarkable workup. EKG is normal today with no symptoms. Will d/c, and the patient has been instructed to f/u with his pmd in [place] as scheduled next week as well as cardiology as schedule. The patient is in no acute distress. I have discussed the results and plan with the patient, who expresses understanding. Patient in agreement with plan to discharged home. Patient is stable for discharge and has been instructed to follow up and return if symptoms worsen or new concerning symptoms arise. - Scribe Statement The provider has reviewed the documentation as recorded by the Domingoibe Pam Paniagua Provider Scribe Attestation: All medical record entries made by the Scribe were at my direction and personally dictated by me. I have reviewed the chart and agree that the record accurately reflects my personal performance of the history, physical exam, medical decision making, and the department course for this patient. I have also personally directed, reviewed, and agree with the discharge instructions and disposition. Disposition/Present on Arrival - Present on Arrival Any Indicators Present on Arrival: No History of DVT/PE: No History of Uncontrolled Diabetes: No Urinary Catheter: No History of Decub. Ulcer: No History Surgical Site Infection Following: None - Disposition Have Diagnosis and Disposition been Completed?: Yes Diagnosis: Palpitations Disposition: HOME/ ROUTINE Disposition Time: 12:51 Patient Plan: Discharge Condition: GOOD Discharge Instructions (ExitCare): Palpitations (ED) Additional Instructions: Follow up with your primary care doctor and litigation coordinator as scheduled. Return to the emergency department if any new concerning symptoms.
[2017-04-16 13:22] VITALS: BP 118/75; PULSE 75; RESP 18
--- NOTE | 2017-04-16 17:23 | CARD ---
APPROVED REPORT EKG Measurement Heart [id number] <Conclusion> Poor data quality, interpretation may be adversely affected Normal sinus rhythm Normal ECG
== END 2017-04-16 13:39 | disposition home or self-care (01) ==
LOC: ED 12:16
DX: R00.2 Palpitations (principal); I10 Essential (primary) hypertension; Z87.891 Personal history of nicotine dependence

== ENCOUNTER 2018-03-18 10:49 | Emergency (ER) | payer BC ==
[2018-03-18 10:49] VITALS: BMI 31.5
[2018-03-18 11:24] VITALS: BP 130/82; RESP 18; TEMP 98.2
[2018-03-18] MEDS ORDERED: Oxycodone/Acetaminophen 5/325 mg Tab PO STA (11:35)
[2018-03-18] MEDS ORDERED: Sodium Chloride 0.9% 500 ML IV STA (11:35)
--- NOTE | 2018-03-18 11:43 | ED PDOC ---
Arrival/HPI - General Chief Complaint: Back Pain Time Seen by Provider: 03/18/18 11:29 Historian: Patient - History of Present Illness Narrative History of Present Illness (Text): 03/18/18 11:35 62 year old male, with past medical history of hypertension, presents to the Emergency Department complaining of lower back discomfort radiating to his b/l legs, described as 8/10 in severity since 1 week; pt states pain is waxing/ waning and with some difficulty with walking. 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 Patient states lower back pain at times radiate downwards to bilateral inner thigh but denies any urinary output changes, dysuria, penile or rectal numbness or tingling. Patient states he was started on cholesterol medications a month ago and developed subsequent generalized myalgia/body cramps/aches. After speaking to his PMD about the symptoms, he stopped his cholesterol medications a week ago and has been free of the body pain/aches since then. Patient denies any fever,chills, sweats, chest pain, shortness of breath, palpitations, abdominal pain, nausea, vomiting, numbness/tingling, no focal weakness, urinary/bowel changes/complaints, fall, trauma, sick contact, travel or any other complaints. pt is here for further eval PMD: Stas Holder Dominancy: Right hand dominant PMhx: Hypertension, elevated chol Time/Duration: 1 week Symptom Course: Unchanged Quality: Aching Severity Level: 8 Activities at Onset: Light Context: Home Past Medical History - Provider Review Nursing Documentation Reviewed: Yes - Travel History Have you recently traveled outside [place] w/in the past 3 mons?: No - Past History Past History: No Previous - Infectious Disease Hx of Infectious Diseases: None - Cardiac Hx Cardiac Disorders: Yes Hx Hypertension: Yes - Pulmonary Hx Respiratory Disorders: No - Neurological Hx Neurological Disorder: Yes Hx Dizziness: Yes - HEENT Hx HEENT Disorder: No - Renal Hx Renal Disorder: No - Endocrine/Metabolic Hx Endocrine Disorders: No - Hematological/Oncological Hx Blood Disorders: Yes Other/Comment: low cell count - Integumentary Hx Dermatological Disorder: No - Musculoskeletal/Rheumatological Hx Musculoskeletal Disorders: No - Gastrointestinal Hx Gastrointestinal Disorders: No - Genitourinary/Gynecological Hx Genitourinary Disorders: No - Psychiatric Hx Psychophysiologic Disorder: No Hx Anxiety: Yes Hx Substance Use: No - Anesthesia Hx Anesthesia: No Hx Anesthesia Reactions: No Family/Social History - Physician Review Nursing Documentation Reviewed: Yes Family/Social History: No Known Family HX Smoking Status: Former Smoker Hx Alcohol Use: Yes Hx Substance Use: No Hx Substance Use Treatment: No Allergies/Home Meds Allergies/Adverse Reactions: Allergies No Known Allergies Allergy (Verified 03/18/18 11:12) Home Medications: Home Meds Medication Instructions Recorded Confirmed Lisinopril [Zestril] 10 mg PO DAILY 03/21/17 03/18/18 amLODIPine [Norvasc] 10 mg PO DAILY 03/21/17 03/18/18 Review of Systems - Physician Review All systems were reviewed & negative as marked: Yes - Review of Systems Constitutional: Normal. absent: Fevers Eyes: Normal ENT: Normal Respiratory: Normal. absent: SOB Cardiovascular: Normal. absent: Chest Pain Gastrointestinal: Normal. absent: Abdominal Pain, Stool Changes, Diarrhea, Nausea, Vomiting Genitourinary Male: Normal. absent: Dysuria, Urinary Output Changes Musculoskeletal: Back Pain, Neck Pain Skin: Normal Neurological: Normal Endocrine: Normal Hemo/Lymphatic: Normal Psychiatric: Normal Physical Exam - Physical Exam Narrative Physical Exam (Text): 03/18/18 11:48 General: alert/awake, GCS = 15, oriented x 3, sitting on exam bed, uncomfortable , cooperative, interactive; NAD Head: NC/AT EYE: PERRLA, EOMI, sclera anicteric, no nystagmus, no photophobia; visual field intact b/l Facial: WNL Oral: uvula/tongue are midline, no exudate/lesions, no drooling/stridor, no dysphonia; intact dentitions; moist oral mucosa NECK: intact ROM, no midline tenderness, no nuchal rigidity, no meningeal signs ; no step off Chest: CTA b/l, no w/r/r; no tachypenia, no accessory muscle use noted Cardiac: +S1, +S2, no m/r/r, no tachycardia Abdominal: +BS, soft/nd/nt, well nourished patient; no masses/rebound/guarding/ rigidity; no rubin's sign, no mcburney's point tenderness Extremities: intact ROM, strength 5/5 grossly intact in all limbs, neurovasc intact b/l; + ambulatory; reflex +2/2; NO SLR noted b/l; pt is able to stand/ walk BACK: no step off, no midline tenderness, NO crepitus, no gross deformities noted; Intact ROM; + diffuse lower lumbar region tenderness SKIN: cap refill < 1 sec, no ulcerations, no petechiae, no rashes NEURO: CNII-XII WNL, no facial asymmetries, no slurr speech, oriented x 3 NIH stroke scale ~ 0 Psych: normal insight, normal affect; follows command with ease Vital Signs Reviewed: Yes Vital Signs Temp Pulse Resp BP Pulse Ox 03/18/18 11:09 98.2 F 64 18 130/82 99 Temperature: Afebrile Blood Pressure: Normal Pulse: Regular Respiratory Rate: Normal Appearance: Positive for: Well-Appearing, Non-Toxic, Uncomfortable, Other ( sitting on exam bed, uncomfortable, cooperative, follows command with ease, NAD , alert/awake, GCS = 15) Pain Distress: None Mental Status: Positive for: Alert and Oriented X 3 - Systems Exam Head: Present: Atraumatic, Normocephalic Medical Decision Making ED Course and Treatment: 03/18/18 11:47 Impression: 62 year old male presents to the Emergency Department for lower back pain since 1 week. I have considered all of the differential diagnostics regarding patient's chief medical complaints/ clinical findings, including but not limited to: r/o rhabdo; likely from adverse drug reaction; r/o lumbar strain, unlikely sciatica Plan: -- Labs -- Oxycodone -- Toradol -- Valium -- X-ray Lumbar Spine -- Urinalysis -- Reassess and disposition Progress Notes: 1230 pt is awaiting lab/xray results 03/18/18 14:03 pt felt improved, pt states pain is now 5/10 pt is made aware of his medical results pt is encouraged min weight bearing pt is encouraged no prolonged standing/walking/lifting pt will f/u as directed pt will be discharged home Re-evaluation Time: 14:03 Reassessment Condition: Improving,but remains with symptoms - Lab Interpretations Lab Results: 03/18/18 11:55 03/18/18 11:55 Lab Results 03/18/18 13:29: Urine Color Yellow, Urine Appearance Clear, Urine pH 6.0, Ur Specific [place] 1.010, Urine Protein Negative, Urine Glucose (UA) Negative, Urine Ketones Negative, Urine Blood Negative, Urine Nitrate Negative, Urine Bilirubin Negative, Urine Urobilinogen 0.2, Ur Leukocyte Esterase Negative 03/18/18 11:55: Sodium 142, Potassium 4.5, Chloride 105, Carbon Dioxide 26, Anion Gap 16, BUN 17, Creatinine 1.1, Est GFR ( Amer) > 60, Est GFR (Non- Af Amer) > 60, Random Glucose 96, Calcium 9.4, Total Bilirubin 0.3, AST 33, ALT 32, Alkaline Phosphatase 77, Total Creatine Kinase 304 H, CK-MB (CK-2) 1.0, CK- MB (CK-2) % Cancelled, Total Protein 7.8, Albumin 4.3, Globulin 3.5, Albumin/ Globulin Ratio 1.2 03/18/18 11:55: WBC 6.8, RBC 5.40, Hgb 15.1, Hct 44.8, MCV 83.0, MCH 28.0, MCHC 33.7, RDW 14.1, Plt Count 31 L*, Gran % 54.4, Lymph % (Auto) 35.0, [place] % (Auto ) 8.4 H, Eos % (Auto) 1.6, Baso % (Auto) 0.6, Gran # 3.70, Lymph # (Auto) 2.4, [place] # (Auto) 0.6, Eos # (Auto) 0.1, Baso # (Auto) 0.04 I have reviewed the lab results: Yes Interpretation: Abnormal lab values (chronic thrombocytopenia) - RAD Interpretation Narrative RAD Interpretations (Text): 03/18/18 13:21 X-ray of lumbar spine reviewed by radiologist, shows: FINDINGS: BONES: Normal alignment. No listhesis. No fracture. Mild mostly anterior endplate osteophytes. DISC SPACES: Unremarkable. OTHER FINDINGS: None. 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 Radiology Orders: 03/18/18 11:35 LS SPINE AP/LAT [RAD] Stat Timber Grader: Radiologist - Medication Orders Current Medication Orders: Discontinued Medications Diazepam (Valium) 5 mg PO ONCE ONE PRN Reason: Protocol Stop: 03/18/18 11:36 Last Admin: 03/18/18 11:56 Dose: 5 mg Sodium Chloride (Sodium Chloride 0.9%) 500 mls @ 999 mls/hr IV .Q31M STA Stop: 03/18/18 12:05 Last Admin: 03/18/18 11:58 Dose: 999 mls/hr eMAR Start Stop Document 03/18/18 11:58 SS (Rec: 03/18/18 11:58 SS [id number]) Intravenous Solution Start Date 03/18/18 Start Time 11:58 End Date 03/18/18 End time 12:28 Total Infusion Time 30 Ketorolac Tromethamine (Toradol) 30 mg IVP STAT STA Stop: 03/18/18 11:35 Last Admin: 03/18/18 11:57 Dose: 30 mg MAR Pain Assessment Document 03/18/18 11:57 SS (Rec: 03/18/18 11:57 SS [id number]) Pain Reassessment Is this a pain reassessment? No Sleep Is patient sleeping during reassessment? No Presence of Pain Presence of Pain Yes Pain Scale Used Pain Scale Used Numeric Location Left, Right or Bilateral Bilateral Upper or Lower Lower Pain Location Body Site Back Description Description Constant Intensity of Pain at present 8 Pain Behavior Rubbing Site IVP Administration Document 03/18/18 11:57 SS (Rec: 03/18/18 11:57 SS [id number]) Charges for Administration # of IVP Administrations 1 Oxycodone/Acetaminophen (Percocet 5/325 Mg Tab) 1 tab PO STAT STA Stop: 03/18/18 11:36 Last Admin: 03/18/18 11:58 Dose: 1 tab MAR Pain Assessment Document 03/18/18 11:58 SS (Rec: 03/18/18 11:58 SS [id number]) Pain Reassessment Is this a pain reassessment? No Sleep Is patient sleeping during reassessment? No Presence of Pain Presence of Pain Yes Pain Scale Used Pain Scale Used Numeric Location Left, Right or Bilateral Bilateral Upper or Lower Lower Pain Location Body Site Back Description Description Constant Intensity of Pain at present 8 - Scribe Statement The provider has reviewed the documentation as recorded by the Domingoibdane Castorena. All medical record entries made by the Scribe were at my direction and personally dictated by me. I have reviewed the chart and agree that the record accurately reflects my personal performance of the history, physical exam, medical decision making, and the department course for this patient. I have also personally directed, reviewed, and agree with the discharge instructions and disposition. Disposition/Present on Arrival - Present on Arrival Any Indicators Present on Arrival: No History of DVT/PE: No History of Uncontrolled Diabetes: No Urinary Catheter: No History of Decub. Ulcer: No History Surgical Site Infection Following: None - Disposition Have Diagnosis and Disposition been Completed?: Yes Diagnosis: Lumbar strain, Thrombocytopenia Disposition: HOME/ ROUTINE Disposition Time: 14:07 Patient Plan: Discharge Patient Problems: Current Active Problems Problem Status Onset Lumbar strain Acute Condition: STABLE Discharge Instructions (ExitCare): Low Back Pain in Adults, Low Back Pain (DC) , Back Exercises Print Language: VIETNAMESE Additional Instructions: Make sure to see your doctor in 1-2 days DRINK PLENTY OF FLUIDS take your medications as prescribed NO heavy lifting avoid prolonged standing/walking; avoid heavy weights RETURN TO ED IF worse pain, cant breath, persistent vomiting, high fever >101- 102 for hours, altered behavior, slurr speech, facial changes, focal weakness ( arm/leg or both), unable to urinate, heavy/persistent bleeding, passing out, chest pain, or other medical emergencies Prescriptions: diaZEpam [Valium] 5 mg PO TID PRN #10 tab PRN Reason: Muscle Spasm Ibuprofen [Motrin] 600 mg PO TID PRN #30 tab PRN Reason: Pain, Mild (1-3) oxyCODONE/Acetaminophen [Percocet 5/325 mg Tab] 1 tab PO TID PRN #10 tab PRN Reason: Pain, Moderate (4-7) Referrals: Stas Holder MD [Primary Care Provider] - Follow up with primary Ankush Mehta MD [Staff Provider] - Follow up with primary Forms: [employer] (Ukrainian), WORK NOTE
[2018-03-18 12:02] LABS: BASO # 0.04 K/mm3 (0.0-2.0); BASO % 0.6 % (0.0-3.0); EOS # 0.1 (0.0-0.7); EOS % 1.6 % (1.5-5.0); GRAN % 54.4 % (50.0-68.0); HEMOGLOBIN 15.1 g/dL (14.0-18.0); LYMPH # 2.4 (1.2-3.4); MEAN CORPUSCULAR HGB CONC 33.7 g/dl (31.0-37.0); MONO # 0.6 (0.1-0.6); MONO % 8.4 % (1.0-6.0); RED CELL DISTRIBUTION WIDTH 14.1 % (11.5-14.5); WHITE BLOOD COUNT 6.8 10^3/ul (4.5-11.0)
[2018-03-18 12:11] LABS: ALB/GLOB RATIO 1.2 (1.1-1.8); ALBUMIN 4.3 g/dL (3.0-4.8); ALT/SGPT 32 U/L (7-56); AST/SGOT 33 U/L (17-59); BLOOD UREA NITROGEN 17 mg/dL (7-21); CALCIUM 9.4 mg/dL (8.4-10.5); GFR AFRICAN-AMERICAN > 60; GFR NON-AFRICAN AMERICAN > 60
[2018-03-18 12:16] LABS: PLATELET COUNT 31 10^3/uL (120.0-450.0)
--- NOTE | 2018-03-18 13:19 | RAD ---
PROCEDURE: Radiographs of the Lumbar Spine. HISTORY: lower back pain, no trauma COMPARISON: No prior. FINDINGS: BONES: Normal alignment. No listhesis. No fracture. Mild mostly anterior endplate osteophytes. DISC SPACES: Unremarkable. OTHER FINDINGS: None. 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
[2018-03-18 13:33] LABS: URINE APPEARANCE CLEAR (CLEAR); URINE BILIRUBIN NEGATIVE (NEGATIVE); URINE BLOOD NEGATIVE (NEGATIVE); URINE COLOR YELLOW (YELLOW); URINE GLUCOSE (UA) NEGATIVE (NEGATIVE); URINE LEUKOCYTE ESTERASE NEGATIVE Leu/uL (NEGATIVE); URINE PROTEIN NEGATIVE mg/dL (<30 mg/dL); URINE UROBILINOGEN 0.2 E.U./dL (<1 E.U./dL)
[2018-03-18 14:23] VITALS: PULSE 82; O2SAT 98
== END 2018-03-18 14:24 | disposition home or self-care (01) ==
LOC: ED 10:49
DX: S39.012A Strain of muscle, fascia and tendon of lower back, initial encounter (principal); X58.XXXA Exposure to other specified factors, initial encounter; Y92.9 Unspecified place or not applicable; D69.6 Thrombocytopenia, unspecified; I10 Essential (primary) hypertension; Z87.891 Personal history of nicotine dependence
CPT/HCPCS: 72100; 80053; 81003; 82550; 82553; 85025; 96374; 99283; J1885; J7040

== ENCOUNTER 2019-02-05 08:22 | Emergency (ER) | payer BC ==
[2019-02-05 08:23] VITALS: BMI 31.5
[2019-02-05] MEDS ORDERED: DiphenhydrAMINE 50 mg/ml Inj IVP STA (09:14)
[2019-02-05] MEDS ORDERED: Sodium Chloride 0.9% 1,000 ML IV ONE (09:14)
[2019-02-05 09:46] LABS: BASO # 0.02 K/mm3 (0.0-2.0); BASO % 0.3 % (0.0-3.0); EOS # 0.1 (0.0-0.7); EOS % 1.3 % (1.5-5.0); HEMOGLOBIN 15.2 g/dL (14.0-18.0); LYMPH # 2.1 (1.2-3.4); LYMPH % 34.5 % (22.0-35.0); MEAN CELL VOLUME 83.7 fl (80.0-105.0); MEAN CORPUSCULAR HEMOGLOBIN 27.5 pg (25.0-35.0); MEAN CORPUSCULAR HGB CONC 32.9 g/dl (31.0-37.0); MONO # 0.4 (0.1-0.6); MONO % 6.6 % (1.0-6.0); RBC 5.52 10^6/uL (3.5-6.1); RED CELL DISTRIBUTION WIDTH 13.9 % (11.5-14.5); WHITE BLOOD COUNT 6.1 10^3/uL (4.5-11.0)
--- NOTE | 2019-02-05 09:47 | ED PDOC ---
Arrival/HPI - General Chief Complaint: ENT Problem Time Seen by Provider: 02/05/19 08:56 Historian: Patient - History of Present Illness Narrative History of Present Illness (Text): 02/05/19 08:56 Lisa Jackson is a 63 year old male, with a past medical history of hypertension, lower dentures, on lisinopril and amlodipine, who presents to the emergency department complaining of left lower facial swelling since this morning after taking lisinopril. Patient informs symptoms are first time occurrence. No family hx of swelling to throat or mouth. Patient denies fall or trauma. No weakness. Denies changes in voice or throat swelling. Denies facial pain or redness secondary to swelling. Denies oral discharge or pain. No fevers, chills, night sweats. Denies headache, dizziness. Denies vision changes. Denies chest pain, shortness of breath, cough. Denies abdominal pain, nausea, vomiting, or diarrhea. Denies dysuria, hematuria. Denies diaphoresis. Denies rash. No other complaints. Time/Duration: 1-3 hours Symptom Onset: Sudden Symptom Course: Unchanged Activities at Onset: Light Context: Home Past Medical History - Provider Review Nursing Documentation Reviewed: Yes - Past History Past History: No Previous - Infectious Disease Hx of Infectious Diseases: None - Cardiac Hx Cardiac Disorders: Yes Hx Hypertension: Yes - Pulmonary Hx Respiratory Disorders: No - Neurological Hx Neurological Disorder: Yes Hx Dizziness: Yes - HEENT Hx HEENT Disorder: No - Renal Hx Renal Disorder: No - Endocrine/Metabolic Hx Endocrine Disorders: No - Hematological/Oncological Hx Blood Disorders: Yes Other/Comment: low cell count - Integumentary Hx Dermatological Disorder: No - Musculoskeletal/Rheumatological Hx Musculoskeletal Disorders: No - Gastrointestinal Hx Gastrointestinal Disorders: No - Genitourinary/Gynecological Hx Genitourinary Disorders: No - Psychiatric Hx Psychophysiologic Disorder: No Hx Anxiety: Yes Hx Substance Use: No - Anesthesia Hx Anesthesia: No Hx Anesthesia Reactions: No Family/Social History - Physician Review Nursing Documentation Reviewed: Yes Family/Social History: Unknown Family HX Smoking Status: Former Smoker Hx Alcohol Use: Yes Hx Substance Use: No Hx Substance Use Treatment: No Allergies/Home Meds Allergies/Adverse Reactions: Allergies No Known Allergies Allergy (Verified 03/18/18 11:12) Home Medications: Home Meds Medication Instructions Recorded Confirmed amLODIPine [Norvasc] 10 mg PO DAILY 03/21/17 03/18/18 Review of Systems - Physician Review All systems were reviewed & negative as marked: Yes - Review of Systems Constitutional: absent: Fevers, Night Sweats, Other (chills) Eyes: absent: Vision Changes ENT: Other (left lower facial swelling; no oral discharge, no erythema or pain secondary to swelling). absent: TMJ Pain, Voice Changes Respiratory: absent: SOB Cardiovascular: absent: Chest Pain Gastrointestinal: absent: Abdominal Pain, Diarrhea, Nausea, Vomiting Genitourinary Male: absent: Dysuria, Hematuria Musculoskeletal: absent: Other (No fall / trauma) Skin: absent: Rash Neurological: absent: Headache, Dizziness Endocrine: absent: Diaphoresis Physical Exam Vital Signs Reviewed: Yes Vital Signs Temp Pulse Resp BP Pulse Ox 02/05/19 08:38 98.4 F 60 16 167/98 H 99 Temperature: Afebrile Blood Pressure: Hypertensive Pulse: Regular Respiratory Rate: Normal Appearance: Positive for: Well-Appearing, Non-Toxic, Comfortable Pain Distress: None Mental Status: Positive for: Alert and Oriented X 3 - Systems Exam Head: Present: Atraumatic, Normocephalic Pupils: Present: PERRL Extroacular Muscles: Present: EOMI Conjunctiva: Present: Normal Mouth: Present: Moist Mucous Membranes. No: Drooling, Trismus, Normal Lips ( left sided edema of left anterior lips; nontender to palpation, no flutuance or erythema), Other (No oral lesions or oral pain on palpation. no anastasiya's, no parotid swelling. Normal gingiva) Pharnyx: Present: Normal. No: ERYTHEMA, EXUDATE, TONSILS ENLARGED, Peritonsilar Swelling, Uvular Deviation, Muffled/Hoarse Voice, Strider, Other (airway involvement) Nose (External): Present: Atraumatic Neck: Present: Normal Range of Motion, Other (no ludwigs). No: Meningeal Signs, MIDLINE TENDERNESS, JVD Respiratory/Chest: Present: Clear to Auscultation, Good Air Exchange. No: Respiratory Distress, Accessory Muscle Use, Wheezes, Rales, Rhonchi Cardiovascular: Present: Regular Rate and Rhythm, Normal S1, S2. No: Murmurs, Rub, Gallop Abdomen: Present: Normal Bowel Sounds. No: Tenderness, Distention, Peritoneal Signs, Rebound, Guarding Back: Present: Normal Inspection. No: CVA Tenderness, Midline Tenderness Upper Extremity: Present: Normal Inspection, Normal ROM, NORMAL PULSES, Neurovascularly Intact, Capillary Refill < 2s. No: Cyanosis, Edema Lower Extremity: Present: Normal Inspection, NORMAL PULSES, Normal ROM, Neurovascularly Intact, Capillary Refill < 2 s. No: Edema Neurological: Present: GCS=15, CN II-XII Intact, Speech Normal, Motor Func Grossly Intact, Normal Sensory Function Skin: Present: Warm, Dry, Normal Color. No: Rashes Psychiatric: Present: Alert, Oriented x 3, Normal Insight, Normal Concentration Medical Decision Making ED Course and Treatment: 02/05/19 08:56 Impression: Patient is a 63 year old male with a past medical history of hypertension and lower dentures, on lisinopril and amlodipine, who presents to the emergency department complaining of left lower facial swelling since this morning after taking lisinopril. Patient notes complaing is a first time occurence. Patient denies shortness of breath. throat swelling. Denies changes in voice or throat swelling. Denies pain or redness secondary to swelling. Also denies oral discharge or pain. No fall, trauma, or weakness. On exam; left sided oropharyngeal edema of left anterior lips nontender to palpation. No anastasiya's. No parotid swelling. No oral lesions or oral pain on palpation. No weakness. Exam otherwise unremarkable. Differential Diagnosis included but are not limited to: Angioedema secondary to lisinopril Plan: -- Benadryl -- SOLU-medrol -- IV Fluids -- Labs -- Reassess and disposition Prior Visits: Notes and results from previous visits were reviewed. Progress Notes: 02/05/19 11:14 pt in NAD, pending re-eval thrombocytopenia on labs: no fall or trauma, pt denies any pain. Endorsed to pt regarding thrombocytopenia: he notes he has a history of it and is followed by outpt hem-onc 02/05/19 13:55 decreased swelling, lungs CTA b/l, posterior oropharynx w/ out abnl, remains w/ out respiratory involvement or lower airway involvement, clear for d/c home w/ return indications, meds and f/u Endorsed need to f/u w/ ENT, PMD and hem-onc, he is agreeable to plan 0 - Medication Orders Current Medication Orders: Sodium Chloride (Sodium Chloride 0.9%) 1,000 mls @ 250 mls/hr IV .Q4H ONE Stop: 02/05/19 13:13 Discontinued Medications Diphenhydramine HCl (Benadryl) 25 mg IVP STAT STA Stop: 02/05/19 09:15 Methylprednisolone (Solu-Medrol) 125 mg IVP STAT STA Stop: 02/05/19 09:15 - Scribe Statement The provider has reviewed the documentation as recorded by the Scribdane Candelario All medical record entries made by the Domingoibe were at my direction and personally dictated by me. I have reviewed the chart and agree that the record accurately reflects my personal performance of the history, physical exam, medical decision making, and the department course for this patient. I have also personally directed, reviewed, and agree with the discharge instructions and disposition. Disposition/Present on Arrival - Present on Arrival Any Indicators Present on Arrival: No History of DVT/PE: No History of Uncontrolled Diabetes: No Urinary Catheter: No History of Decub. Ulcer: No History Surgical Site Infection Following: None - Disposition Have Diagnosis and Disposition been Completed?: Yes Diagnosis: Allergic reaction caused by a drug, Allergy to lisinopril, Thrombocytopenia, Angioedema Disposition: HOME/ ROUTINE Disposition Time: 13:59 Condition: STABLE Discharge Instructions (ExitCare): Adverse Drug Reactions, Adult (DC), Allergy Skin Testing, Angioedema (DC) Additional Instructions: STOP TAKING LISINOPRIL. SEE YOUR PRIMARY CARE DOCTOR, OR ONE WE RECCOMEND, AN PAN PUSHER AND A EAR NOSE THROAT DOCTOR AND A HEMATOLOGY ONCOLOGY DOCTOR. RETURN FOR ANY OTHER ISSUES LISA JACKSON thank you for letting us take care of you today. Your provider was David Chacon and you were treated for mouth swollen. The emergency medical care you received today was directed at your acute symptoms. If you were prescribed any medication, please fill it and take as directed. It may take several days for your symptoms to resolve. Return to the Emergency Department if your sympto ms worsen, do not improve, or if you have any other problems. Please contact your doctor or call one of the physicians/clinics you have been referred to that are listed on the Patient Visit Information form that is included in your discharge packet. Bring any paperwork you were given at discharge with you along with any medications you are taking to your follow up visit. Our treatment cannot replace ongoing medical care by a primary care provider outside of the emergency department. Thank you for allowing the [facility] team to be part of your care today. If you had an X-Ray or CT scan: A Radiologist will review the ED reading if any change in treatment is needed we will contact you. If you had a blood, urine, or wound culture: It will take several days for the results, if any change in treatment is needed we will contact you. If you had an STI test: It will take 48 hours for the results. Please call after 1 week if you have not heard back. Prescriptions: DiphenhydrAMINE [Benadryl] 25 mg PO Q6H PRN 7 Days #28 cap PRN Reason: Allergy Symptoms Epinephrine [Epipen] 0.3 mg IJ ONCE PRN #1 auto.injct PRN Reason: Anaphylaxis predniSONE [Prednisone] 40 mg PO DAILY 5 Days #10 tab Referrals: Nikolay Muñoz MD [Staff Provider] - Follow up with primary Porfirio Farmer DO [Staff Provider] - Follow up with primary Zainab Viera MD [Medical Doctor] - Follow up with primary [facility] [place] [Outside] - Follow up with primary [facility] [Outside] - Follow up with primary [facility] [place]] - Follow up with primary Forms: [employer] (Tunisian)
[2019-02-05 09:50] LABS: PLATELET COUNT 23 10^3/uL (120.0-450.0)
[2019-02-05 09:56] VITALS: RESP 18
[2019-02-05 10:01] LABS: ALB/GLOB RATIO 1.1 (1.1-1.8); ALBUMIN 4.3 g/dL (3.0-4.8); ALT/SGPT 23 U/L (7-56); AST/SGOT 35 U/L (17-59); BLOOD UREA NITROGEN 13 mg/dL (7-21); CALCIUM 9.6 mg/dL (8.4-10.5); GFR NON-AFRICAN AMERICAN > 60
[2019-02-05 14:21] VITALS: BP 126/72; PULSE 85; TEMP 98; O2SAT 97
== END 2019-02-05 14:22 | disposition home or self-care (01) ==
LOC: ED 08:22
DX: T78.3XXA Angioneurotic edema, initial encounter (principal); T88.7XXA Unspecified adverse effect of drug or medicament, initial encounter; T46.4X5A Adverse effect of angiotensin-converting-enzyme inhibitors, initial encounter; Y92.9 Unspecified place or not applicable; Z88.8 Allergy status to other drugs, medicaments and biological substances
CPT/HCPCS: 80053; 85025; 96361; 96374; 96375; 99283; J1200; J2930; J7030